=== PATIENT | male | born 1990 | race Caucasian/White ===

== ENCOUNTER 2024-07-07 14:20 | Emergency (ER) | payer MEDICAID ==
[~2024-07-07] VITALS: Ht 177.8 cm; Wt 72.7 kg
[2024-07-07] MEDS ORDERED: CEPH-585 PO (15:45)
[2024-07-07 15:47] VITALS: BP 122/64; PULSE 78; RESP 16; TEMP 98.8; O2SAT 99
== END 2024-07-07 15:59 | disposition home or self-care (01) ==
LOC: ER 14:20
DX: L02.413 Cutaneous abscess of right upper limb (principal)
CPT/HCPCS: 99283